=== PATIENT | male | born 1950 | race Caucasian/White ===

== ENCOUNTER 2017-07-26 15:29 | Inpatient (IN) | payer OTHER ==
[~2017-07-26] VITALS: Ht 185.4 cm; Wt 99.4 kg
[~2017-07-26 15:29] MED LIST: NOHOMEMEDS
[2017-07-26] MEDS ORDERED: LISINOPRIL-HCT1 EAC3 PO (19:37)
[2017-07-26] MEDS ORDERED: VITAMIN B-12500 MC5 SL (19:38)
[2017-07-26 21:43] LABS: HEMATOCRIT 32.3 % (38.0-50.0); MCH 31.1 PG (29.0-34.0); MCHC 33.7 G/DL (30.0-36.0); MEAN PLAT.VOLUME 8.1 uM^3 (9.0-12.4); PLATELET COUNT 152 K/uL (156-360); RBC DIS.WIDTH-CV 12.4 % (11.8-14.6); RBC DIS.WIDTH-SD 41.3 % (39-53); RED BLOOD COUNT 3.51 M/uL (4.00-5.50); WHITE BLOOD COUNT 7.9 K/uL (4.1-10.2)
[2017-07-26 21:49] LABS: INTER. NORMALIZED RATIO 1.2
[2017-07-26 21:51] LABS: CHLORIDE 101 mEq/L (99-109); POTASSIUM 4.2 mEq/L (3.7-5.4); SODIUM 133 mEq/L (136-147)
[2017-07-26 21:52] LABS: MAGNESIUM 1.8 mg/dL (1.3-2.7)
[2017-07-26 21:54] LABS: GLUCOSE 113 mg/dL (70-99)
[2017-07-26 21:55] LABS: ANION GAP 8 MEQ/L (2-14)
[2017-07-26 21:56] LABS: TOTAL BILIRUBIN 1.1 mg/dL (0.0-1.0)
[2017-07-26 21:57] LABS: ALKALINE PHOSPHATASE 75 IU/L (3-129)
[2017-07-26 21:58] LABS: GFR ESTIMATE (CALCULATED) > 59 mL/min/
[2017-07-26 21:59] LABS: UREA NITROGEN (BUN) 20 mg/dL (9-23)
[2017-07-26 22:49] VITALS: BP 141/76
[2017-07-27 04:19] VITALS: BP 122/69
[2017-07-27 06:50] LABS: HEMATOCRIT 33.7 % (38.0-50.0); MCHC 33.2 G/DL (30.0-36.0); MCV 93.4 FL (86-99); MEAN PLAT.VOLUME 8.4 uM^3 (9.0-12.4); PLATELET COUNT 164 K/uL (156-360); RBC DIS.WIDTH-CV 12.6 % (11.8-14.6); RBC DIS.WIDTH-SD 43.6 % (39-53); RED BLOOD COUNT 3.61 M/uL (4.00-5.50)
[2017-07-27 07:16] LABS: ANION GAP 8 MEQ/L (2-14); CHLORIDE 102 MEQ/L (99-109); GFR ESTIMATE (CALCULATED) > 59 mL/min/; GLUCOSE 96 mg/dL (70-99); POTASSIUM 3.8 MEQ/L (3.7-5.4); SAMPLE HEMOLYSIS CHECK 0; SAMPLE ICTERIC CHECK 0; SAMPLE LIPEMIA CHECK 0; SODIUM 139 MEQ/L (136-147); UREA NITROGEN (BUN) 16 mg/dL (9-23)
[2017-07-27 07:53] VITALS: BP 150/78
[2017-07-27 11:37] VITALS: BP 156/83
[2017-07-27 16:55] VITALS: BP 122/71
[2017-07-27 19:25] VITALS: BP 126/69
[2017-07-27 22:01] LABS: ADD MIUA? YES; BILIRUBIN NEGATIVE; BLOOD SMALL; COLOR YELLOW ((YELLOW)); GLUCOSE (STRIP) NEGATIVE; KETONES NEGATIVE; LEUKOCYTES SMALL; NITRITE POSITIVE; PROTEIN (STRIP) NEGATIVE; SPECIFIC GRAVITY 1.019 (1.000-1.030); UROBILINOGEN 0.2 MG/DL (0.2-1.0)
[2017-07-27 22:22] LABS: BACTERIA NONE SEEN /HPF; CALCIUM OXALATE CRYSTALS 1+ /HPF; EPITHELIAL CELLS RARE /HPF; HYALINE CASTS 0-5 /LPF; MUCUS TRACE /LPF; RED BLOOD CELLS 15-20 /HPF (0-5); UCUL ADDED? YES; WHITE BLOOD CELLS 15-20 /HPF (0-5)
[2017-07-27 23:14] LABS: AMPHETAMINES QUANT VALUE 0 NG/ML; BARBITUATES QUANT VALUE 0 NG/ML; BENZODIAZEPINES QUANT VALUE 0 NG/ML; BENZODIAZEPINES, URINE SCREEN Negative (200 ng/mL); MARIJUANA QUANT VALUE 0 NG/ML; PHENCYCLIDINE QUANT VALUE 0 NG/ML
[2017-07-27 23:47] VITALS: BP 132/74
[2017-07-28 03:02] VITALS: BP 135/74
[2017-07-28 07:47] VITALS: BP 133/75
[2017-07-28 11:47] VITALS: BP 141/76
[2017-07-28 16:48] VITALS: BP 109/65
[2017-07-28 19:08] VITALS: BP 133/69
[2017-07-28 22:57] VITALS: BP 145/78
[2017-07-29 05:12] VITALS: BP 145/86
[2017-07-29 07:32] LABS: HEMATOCRIT 36.9 % (38.0-50.0); MCH 30.6 PG (29.0-34.0); MCHC 32.5 G/DL (30.0-36.0); MCV 94.1 FL (86-99); PLATELET COUNT 189 K/uL (156-360); RBC DIS.WIDTH-CV 12.7 % (11.8-14.6); RED BLOOD COUNT 3.92 M/uL (4.00-5.50); WHITE BLOOD COUNT 9.4 K/uL (4.1-10.2)
[2017-07-29 07:54] LABS: ANION GAP 12 MEQ/L (2-14); CHLORIDE 100 MEQ/L (99-109); GFR ESTIMATE (CALCULATED) > 59 mL/min/; GLUCOSE 92 mg/dL (70-99); POTASSIUM 3.8 MEQ/L (3.7-5.4); SAMPLE HEMOLYSIS CHECK 0; SAMPLE ICTERIC CHECK 0; SAMPLE LIPEMIA CHECK 0; SODIUM 137 MEQ/L (136-147); UREA NITROGEN (BUN) 20 mg/dL (9-23)
[2017-07-29 08:05] VITALS: BP 122/71
[2017-07-29 11:39] VITALS: BP 136/74
[2017-07-29] MEDS ORDERED: Tylenol Extra Streng PO (16:14)
[2017-07-29 16:25] VITALS: BP 143/74
== END 2017-07-29 17:24 | disposition home or self-care (01) | DRG 536 ==
LOC: EME 15:29 → 3EAST 21:28 → EDOF 21:28 → ENRESERV 21:30 → 3EAST 22:36
PROVIDERS: Internal Medicine; Physician Assistant
DX: S72.112A Displaced fracture of greater trochanter of left femur, initial encounter for closed fracture (principal); I10 Essential (primary) hypertension; E53.8 Deficiency of other specified B group vitamins; W01.0XXA Fall on same level from slipping, tripping and stumbling without subsequent striking against object, initial encounter; D51.9 Vitamin B12 deficiency anemia, unspecified; R59.1 Generalized enlarged lymph nodes; M25.462 Effusion, left knee; Z82.49 Family history of ischemic heart disease and other diseases of the circulatory system; M19.90 Unspecified osteoarthritis, unspecified site; E78.5 Hyperlipidemia, unspecified
CPT/HCPCS: 71010; 73502; 73522; 73564; 73700; 80048; 80053; 80306 90; 81003; 83605; 83735; 85025; 85027; 85610; 85730; 87040; 87086; 90686; 97530 GO; 97530 GP; 99281; 99285; G0378; J0696; J2270; J7050